=== PATIENT | male | born 2000 | race Caucasian/White ===

== ENCOUNTER 2023-05-03 15:50 | Emergency (ER) | payer OTHER, SELFPAY ==
[2023-05-03 16:34] VITALS: BP 110/67; PULSE 85; RESP 16; TEMP 36.6; O2SAT 97; BMI 16.8
--- NOTE | 2023-05-03 16:34 | ED.EYEPROB ---
HPI - Eye Problem General Chief complaint: Eye Problems Stated complaint: right eye red and swollen Time Seen by Provider: 05/03/23 16:42 Source: patient Mode of arrival: ambulatory Limitations: no limitations History of Present Illness HPI Narrative: 22 year old male with no significant past medical history presents to the ED with compliants of right eye redness and itching x 1 week. No vision changes, foreign body sensation, or known trauma to the eye. Related Data Previous Rx's Medication Instructions Recorded ciprofloxacin HCl 0.3 % eye drops See Rx Instructions 05/03/23 ophthalmic-Right .COMPLEX #5 mL erythromycin 5 mg/gram (0.5 %) eye 1 appl ophthalmic-Right DAILY 5 05/03/23 ointment days #3.5 grams Allergies Allergy/AdvReac Type Severity Reaction Status Date / Time No Known Allergies* Allergy Uncoded 12/20/19 22:55 Review of Systems Review of Systems: Yes all other systems are reviewed and are negative Physical Exam Vital Signs: Vital Signs: Last Vital Signs Temp 98 F 05/03/23 16:34 Pulse 85 05/03/23 16:34 Resp 16 05/03/23 16:34 BP 110/67 05/03/23 16:34 Pulse Ox 97 05/03/23 16:34 O2 Del Method Room Air 05/03/23 16:34 BMI result Body Mass Index 16.8 Nursing notes and vital signs reviewed. GENERAL APPEARANCE: A&0 x 4, generally well appearing, no acute distress HENMT: Normal to inspection, atraumatic, face symmetrical. Normal external ears, nose, and oropharynx clear. EYE: PERRLA, EOM intact, structures appear normal. Right inner eye injected. Purulent discharge noted in corner of right eye NECK: Supple without stiffness or restricted ROM. HEART: Normal rate and regular rhythm, normal S1/S2, no M/R/G LUNGS: LS CTA, moving air well. Able to speak in complete sentences. No crackles, wheezes, or rhonchi auscultated BACK: No CVAT, no obvious deformity EXTREMITIES: Moving all extremities without difficulty. Normal capillary refill. NEUROLOGICAL: Alert and oriented, moving all 4 extremities with equal strength. CN not formally tested but appearing grossly intact. Observed to ambulate with normal gait. Cognition normal SKIN: Warm and dry without any lesions, rash, or visible sores Medical Decision Making Medical Decision Making MDM Narrative: Old records reviewed for previous imaging, lab studies, ECGs, and notes. Patient was assessed the emergency department with no acute distress or toxicity noted. Pt's symptoms consistent with bacterial conjunctivitis. Cipro drops sent to pharmacy for daytime use and erythromycin for nighttime/bedtime use. Pt educated to keep hands clean and dry to prevent spread of infection to others or his to his left eye. Pt reports understanding. Patient is safe for discharge at this time with plan for [id number]-[id number] Tylenol and/or NSAID such as ibuprofen or naproxen for fever/discomfort with dosing as per packaging. HPI, PE, diagnostics, and plan discussed with patient and family with no unanswered questions at this time. Strict return precautions given to return to the emergency department with new, worsening, or concerning emergent symptoms. Recommended to follow-up with there primary care provider in 24-48 hours for further treatment and management. Differential Diagnosis Differential Diagnoses: The differential diagnosis associated with the presentation includes but not limited to: conjunctivitis, corneal abrasion, keratitis, uvelitis Discharge Plan Discharge Clinical Impression: Bacterial conjunctivitis Patient Disposition: Home, Self-Care Additional Instructions: Your seen in the emergency department for concerns of an infection in your right eye. Your symptoms are consistent with bacterial conjunctivitis otherwise known as pink eye. Antibiotic eye drops and ointment were sent to you preferred pharmacy You are safe for discharge at this time with plan for management of fever or discomfort with [id number]-[id number] Tylenol and/or NSAID such as ibuprofen or naproxen with dosing as per packaging. Please return to the emergency department with new, worsening, or concerning emergent symptoms. Recommended to follow-up with your primary care provider in 24-48 hours for further treatment and management. Thank you for choosing [facility]. Prescriptions: New erythromycin 5 mg/gram (0.5 %) ointment 1 appl ophthalmic-Right DAILY 5 Days Qty: 3.5 0RF Rx Instructions: At bedtime ciprofloxacin HCl 0.3 % drops See Rx Instructions .ROUTE .COMPLEX Qty: 5 0RF Rx Instructions: put 1-2 drps in affected eye(s) every 2hr up to 8 times/day x2days; then 4 times/day x5days Referrals: [facility] [facility] [place] [facility] [place] [facility]] [facility] [place] [facility] [place] [facility]] Stand Alone Forms: Work/School Release Interventions: ED Discharge Assessment Last Done: 05/03/23 16:50 Print Language: Uzbek
== END 2023-05-03 16:58 | disposition home or self-care (01) ==
LOC: HO.ED 16:57
PROVIDERS: Emergency Provider Emergency Medicine
DX: H10.31 Unspecified acute conjunctivitis, right eye (principal); H57.11 Ocular pain, right eye
CPT/HCPCS: 99282; 99283

== ENCOUNTER 2024-11-25 12:39 | Emergency (ER) | payer OTHER, SELFPAY ==
--- NOTE | 2024-11-25 12:41 | ED_ITS ---
HPI - General Adult General Chief complaint: Eye Problems Stated complaint: Eye irritation Time Seen by Provider: 11/25/24 13:48 Source: patient and RN notes reviewed Mode of arrival: ambulatory Limitations: no limitations History of Present Illness ED Provider: Avril Quiroz PA-C HPI narrative: Patient seeks medical attention today for evaluation of bilateral eyelid irritation. It started approximately 2 months ago. He has no past medical history of this occurring before in the past. He does rub his eyes lab but denying any visual changes burning or eye trauma. He has seen his primary care provider for this when it 1st started who told him just to do warm compresses. Patient states that he wets a paper towel with warm water and does it once a day but does not seem to make any difference. No other interventions. He does not wear any makeup or use topical lotions on face. Related Data Previous Rx's ?Medication ?Instructions ?Recorded ciprofloxacin HCl 0.3 % eye drops See Rx Instructions 05/03/23 ophthalmic-Right .COMPLEX #5 mL erythromycin 5 mg/gram (0.5 %) eye 1 appl ophthalmic-R ight DAILY 5 05/03/23 ointment days #3.5 grams erythromycin 5 mg/gram (0.5 %) eye 0.5 inch ophthalmic (eye) QID #3.5 11/25/24 ointment grams Allergies Allergy/AdvReac Type Severity Reaction Status Date / Time No Known Allergies Allergy Verified 11/25/24 12:45 Review of Systems 2 Review of Systems: Yes all other systems are reviewed and are negative PMFSH Past Medical History Attestation statement: The following information was validated with the patient. Source: nursing notes reviewed Social History Social History Advance Directives: No Advance Directives Information Provided: Yes Physical Exam ED Exam Exam: Vital Signs: Vital Signs - 24 hr 11/25/24 12:42 Temperature 98.8 F Pulse Rate 91 Respiratory Rate 18 Blood Pressure 146/68 H Pulse Oximetry 96 Oxygen Delivery Method Room Air BMI result Body Mass Index 16.5 Const Other: styes as above, right lower inner lid, meibomian stye approximately 3 mm rounded on the mid external eyelid 2 mm stye, left lower eyelid stye approximately 3mm, affect sternal eyelid margin 2 mm cyst, left internal eyelid margin just inside 2 mm stye, no lid crusting conjunctiva and sclera clear no periorbital erythema or edema EOMs intact nonpainful General: cooperative and healthy appearing [facility] Head: Yes normal to inspection Course Course Course Narrative: This is a Rapid Medical Examination (RME) performed by Misha Saeed PA-C in triage. Full HPI, ROS, assessment and treatment plan per primary provider in the Main ED. Hx: 23 yo M here for eval of irritation to b/l lower eye lids w/ asocciated bumps , x2 weeks, worsening. no vision changes/ crusting/ discharge. wears glasses, no contacts Medical Decision Making Medical Decision Making MDM Narrative: Patient with +bilateral lid swelling of lower with small styes ML hordeolum/chalazion. Based on H&P and exam, this patient appears to be at low risk for emergent causes of lid swelling such as orbital cellulitis, exophthalmos, ptosis or lacrimal tumor. Rx: Warm compresses x15 min QID, NSAIDs, shared decision making for abx ointment. Advised follow up with admission specialist if needed for I and D/ further assessment. Patient declined I and D of left lower eyelid one here. Differential Diagnosis Differential Diagnoses: The differential diagnosis associated with the presentation includes hordeolum/ chalazion periorbital cellulitis blepharitis atopic dermatitis conjunctivitis Admission/Observation Consideration of admission/observation: Escalation of care including admission/observation considered Patient would have been admitted to the hospital had his work up had any findings where hospital admission was appropriate and his clinical presentation warranted hospital admission. Tests considered The following testing was considered but not selected: Had patient presented with any concerns for orbital cellulitis would have continued CT of the face Prescription Management I considered prescription management with: Antibiotic Social Determinants Patient?s care significantly limited by Social Determinants of Health including: Other Social Determinant of Health Discharge Plan Discharge Clinical Impression: Hordeolum externum of right lower eyelid Hordeolum externum left eye, unspecified eyelid Qualifiers: Eyelid: unspecified eyelid Qualified Code(s): H00.016 - Hordeolum externum left eye, unspecified eyelid Patient Disposition: Home, Self-Care Instructions: Stye (ED) Additional Instructions: You have multiple hordeolum and chalazion (commonly known as a stye) of both of your eyelids. I have offered to perform an excision of these while here especially on the 1 of the left lower lip but you have declined this please follow up outpatient with the eye surgeon specialist for this as it likely will not further respond to any topical measures or topical medications at this been present for the last 2 months. Apply frequent warm compresses to the area with gentle massage to help try to drain the stye. Use baby shampoo to clean the lid margin once daily. Use the topical antibiotic ointment If not resolving please follow-up with an eye doctor to have this further evaluated and treated, as in some cases this will require drainage if it does not do so on its own with the above treatment after 1-2 weeks. Prescriptions: New erythromycin 5 mg/gram (0.5 %) ointment 0.5 inch ophthalmic (eye) QID Qty: 3.5 1RF No Action erythromycin 5 mg/gram (0.5 %) ointment 1 appl ophthalmic-Right DAILY 5 Days Qty: 3.5 0RF Rx Instructions: At bedtime ciprofloxacin HCl 0.3 % drops See Rx Instructions .ROUTE .COMPLEX Qty: 5 0RF Rx Instructions: put 1-2 drps in affected eye(s) every 2hr up to 8 times/day x2days; then 4 times/day x5days [facility] Referral Note: chalazion, stye removal Stand Alone Forms: Work/School Release Print Language: Azeri
[2024-11-25 12:42] VITALS: BP 146/68; PULSE 91; RESP 18; TEMP 37.1; O2SAT 96; BMI 16.5
[2024-11-25 14:49] VITALS: BP 146/68; PULSE 91; RESP 18; TEMP 37.1; O2SAT 96
--- OUTSIDE RECORDS SUMMARY | 2024-11-25 15:31 | XMS_ITS | Encounter Summary ---
Author Organization [facility] Address [address] [place] [id number] Phone Care Team Providers Care Iron Worker Foreman Name Role Phone Roma Varma MD Primary Care Pro vider Reason for Visit * Reason Comments Med Refill Encounter Details Date Type Department Care Team (Late st Contact Info) Description 07/05/2019 Refill [facility] [address] [phone] Roma Varma MD [address] [phone] Vitamin D deficiency Social History Tobacco Use Types Packs/Day Years Used Date Smoking Tobacco: Never Smokeless Tobacco: Never Comments:Never Alcohol Use Standard Drinks/Week Comments No 0 (1 standard drink = 0.6 oz pur e alcohol) Sex and Gender Information Value Date Recorded Sex Assigned at Not on file Legal Sex Male 12:17 PM EST Gender Identity Not on file Sexual Orientation Straight 03/22/2021 3: 46 PM EST documented as of this encounter Plan of Treatment Not on file documented as of this encounter Visit Diagnoses Diagnosis Vitamin D deficiency documented in this encounter Care Teams Iron Worker Foreman Relationship Specialty Start Date End Date Roma Varma MD [address] [phone] PCP - General 12/15/16 03/06/23 documented as of this encounter
--- OUTSIDE RECORDS SUMMARY | 2024-11-25 15:31 | XMS_ITS | Encounter Summary ---
Author Organization [facility] Address [address] [place] [phone] Phone Care Team Providers Care Sample Book Maker Name Role Phone Roma Varma MD Primary Care Pro vider Encounter Details Date Type Department Care Team (Late st Contact Info) Description 05/24/2017 Conversion Encounter [facility] [address] [phone] Roma Varma MD [address] [phone] Social History Tobacco Use Types Packs/Day Years Used Date Smoking Tobacco: Never Comments:Never Sex and Gender Information Value Date Recorded Sex Assigned at Not on file Legal Sex Male 12:17 PM EST Gender Identity Not on file Sexual Orientation Straight 03/22/2021 3: 46 PM EST documented as of this encounter Plan of Treatment Not on file documented as of this encounter Visit Diagnoses Not on filedocumented in this encounter Care Teams Sample Book Maker Relationship Specialty Start Date End Date Roma Varma MD [address] [phone] PCP - General 12/15/16 03/06/23 documented as of this encounter
--- OUTSIDE RECORDS SUMMARY | 2024-11-25 15:31 | XMS_ITS | Clinical Summary ---
Author Organization [facility] Address [address] [place] [phone] Phone Care Team Providers Care Latex Caster Name Role Phone Unavailable Primary Care Provider Unavailabl e Allergies No known active allergies Medications ibuprofen 600 MG tablet Take 600 mg by mouth every 6 (six) hours as needed. for pain 0 8 Active Nutritional Supplements (PEDIASURE 1.5 WILY) liquidIndication s:BMI < 5th percentile in child Ut dict 11 Can 11 9 Active Additional Information Patient not taking.Reported on 05/25/2022 hydrocortisone 2.5 % creamIndications :Ingrown toenail of left foot Apply topically 2 (two) times a day as needed for rash. 20 g 1 0 Active Additional Information Patient not taking.Reported on 05/25/2022 Active Problems Patient Care Coordination No te Formatting of this note migh t be different from the original. 04/26/18-Per note left on my desk I typed a letter stating Imguel diagnosis. I also called mom to discuss IEP college arrangements(per letter on my desk). Problem Noted Date Diagnosed Date Left varicocele 05/25/2022 Body mass index (BMI) 19.9 or less, adult 2019 Assessment & Plan (02/06/2020 11:18 PM EST): BMI 16.7 <1 %; nutritional labs/ infammatory markers; pt deferred on labs today and would like his mother speak with us first; pt will need wily count and close follow up in next 2-4 weeks Sensorineural hearing loss (SNHL) of both ears 1 Overview (01/21/2018): Evaluated by DR Rodriguez in 2014 , amplification recommended - family decided not to pursue it. Allergic rhinitis 01/09/2018 Assessment & Plan (02/01/2019 7:16 PM EST): Symptoms are cotrolled with seasonal use of OTC anti-allergy medications. Autistic disorder 01/09/2018 Assessment & Plan (02/01/2019 7:18 PM EST): Will involve [employer] since it is working with peoples until 26 y/o, Janki our [facility] will assist mom With the process. Mom will enquire about guardianship with the court Wears glasses 12/15/2016 Nose septum deviation 10/12/2014 Overview (04/25/2018): to the right w/narrowing right nasal cavity Resolved Problems Problem Noted Date Diagnosed Date Resolved Date Refused influenza vaccine 01/31/2019 Immunizations Immunization Administration Dates Next Due DTaP 07/10/2005, 3,05/27/2001,04/01,02/11/2001 HPV, Quadrivalent 05/22/2014,01/16/2014,11/14/19 14 Hep A, ped/adol 11/26/2015,11/24/2014 Hep B, ped/adol 09/02/2001,01/09/2001,2000 HiB 03/03/2002, 2,04/01/2001,02/11 IPV 07/10/2005, 3,04/01/2001,02/11 Influenza, injectable, quadr ivalent, preservative free 03/22/2021,02/06/2020,02/06/2020(Defer red: Other - pt is 19 years old and directed to local pharmacy for flu vaccine administration),01/31/2019,01/09/2018 Influenza, injectable, trivalent 02/12/2014 MMR 07/04/2006,03/03/2002 Meningococcal B Trumenba 05/25/2022 Meningococcal Conj (Menactra) MCV4P 12/15/2016,0 11/13/2013 Pneumococcal Conjugate 05/27/2001,04/01/2001, Tdap 05/25/2022,05/10/2012 Varicella 05/10/2012,11/12/2002 Social History Tobacco Use Types Packs/Day Years Used Date Smoking Tobacco: Never Smokeless Tobacco: Never Comments:Never Alcohol Use Standard Drinks/Week Comments No 0 (1 standard drink = 0.6 oz pur e alcohol) Hunger/Food Answer Date Recorded In the last 12 months, did y ou or your family ever eat less than you felt you should because there wasn't enough money for food? No 05/25/2022 Stable Housing Answer Date Recorded Are you worried that in the next 2 months you may not have stable housing? No 05/25/2022 Transportation Concerns Answer Date Rec orded In the last 12 months, have you or your family ever had to go without healthcare because you didn't have a way to get there? No 05/25/2022 Hazards in Home Answer Date Recorded Think about the place you li ve. Do you have problems with any of the following? Pests (mice or roaches), mold, no/not working smoke detectors, water leaks, no window guards. No 2022 Financing Utilities Answer Date Recorde d In the last 12 months, has t he electric, gas, oil, or water company threatened to shut off your services in your home? No 05/25/2022 Safety at Home Answer Date Recorded Are you or your family worried about feeling saf e in your home? No 05/25/2022 Outside Support Answer Date Recorded Do you feel that you need mo re support from other people or programs to help you care for yourself or your family? No 05/25/2022 Understanding Health Concerns Answer Da te Recorded Do you need help understandi ng your or your child's healthcare needs (diagnosis, medications, plan, etc.)? No 05/25/2022 Financing Health Concerns Answer Date R ecorded In the last 12 months, was t here a time when your child needed to see a doctor or get medications or supplies but could not because of cost? No 05/25/2022 Missing School or Work Answer Date Bhupendra rded Did you or your child miss s chool or work because of a health problem that could have been avoided? No 05/25/2022 Sex and Gender Information Value Date Recorded Sex Assigned at Not on file Legal Sex Male 12:17 PM EST Gender Identity Not on file Sexual Orientation Straight 03/22/2021 3: 46 PM EST Last Filed Vital Signs Vital Sign Reading Time Taken Comments Blood Pressure 111/72 05/25/2022 3:33 PM EST Pulse 87 05/25/2022 3:33 PM EST Temperature 36.9 C (98.4 F) 05/25/2022 3:33 PM EST Respiratory Rate - - Oxygen Saturation 100% 11/25/2014 12:00 AM EDT Inhaled Oxygen Concentration - - Weight 58.2 kg (128 lb 6.4 oz) 05/25/2022 3:33 P M EST Height 186.7 cm (6' 1.5 ) 05/25/2022 3:33 PM EST Body Mass Index 16.71 05/25/2022 3:33 PM EST Plan of Treatment Health Maintenance Due Date Last Done Comments Men B Vaccine (2 of 2 - Trumenba SCDM 2-dose series) 11/25/2022 05/25/2022 Influenza Vaccines (#1) 2024 03/22/20, 02/06/2020, 01/31/2019, Additional history exists COVID-19 Vaccine ( season) 2024 03/18/2021, 02/25/2021 DTaP,Tdap,and Td Vaccines (8 - Td or Tdap) 05/25/2032 05/25/2022, 05/10/2012, 07/10/2005, Additional history exists Pneumococcal Vaccine Aged Out 05/27/2001, 04/01/2001, 02/11/2001 No longer eligible based on patient's age to complete this topic Hepatitis B Vaccines Completed 09/02/2001, 01/09/2001, 2000 HIB Vaccines Completed 03/03/2002, 06/2001, 04/01/2001, Additional history exists IPV Vaccines Completed 07/10/2005, 05/24, 04/01/2001, Additional history exists MMR Vaccines Completed 07/04/2006, 03/03/2002 Varicella Vaccines Completed 05/10/2012, 11/12/2002 HPV Vaccines Completed 05/22/2014, 12/25, 11/13/2013 Hepatitis A Vaccines Completed 11/26/2015, 11/25/19 15 Meningococcal Vaccine Completed 12/15/2016, 014
== END 2024-11-25 14:52 | disposition home or self-care (01) ==
PROVIDERS: Emergency Provider Emergency Medicine; PCP Student in an Organized Health Care Education/Training Program
DX: H00.016 Hordeolum externum left eye, unspecified eyelid (principal)
CPT/HCPCS: 99282; 99283